=== PATIENT | female | born 1980 | race Caucasian/White ===

== ENCOUNTER 2019-04-16 07:15 | Inpatient (IN) | payer SELFPAY ==
[2019-04-16 07:49] VITALS: BMI 35.0
[2019-04-16] MEDS: Lactated Ringers 1,000 ML 200 ML IV ×2 (08:00→17:30)
[2019-04-16] MEDS: Oxytocin 30 units/NS 500 ml 30 UNITS/500 ML IV.SOLN IV (08:14)
[2019-04-16 08:17] LABS: Absolute Lymphocyte Count 1.87 X10^3/uL (0.83-4.51); Absolute Neutrophil Count 8.1 X10^3/uL (2.0-7.7); Basophil# 0.07 X10^3/uL; Basophil% 0.6 % (0-1); Eosinophil# 0.08 X10^3/uL; Eosinophils% 0.7 % (0-5); Hematocrit 33.6 % (37-47); Hemoglobin 11.3 g/dL (12.0-15.0); Lymphocyte # 1.87 X10^3/ul (4.0); Lymphocyte % 16.7 % (19-41); Mean Corp Hgb Conc 33.6 g/dL (32-36); Mean Corpuscular Hgb 31.7 pg (27.0-32.0); Mean Corpuscular Volume 94.1 fL (81-99); Mean Platelet Vol. 10.4 fl (6.2-12.0); Monocyte# 0.84 X10^3/uL; Monocyte% 7.5 % (0-10); NRBC Flagged by Analyzer 0 % (0-5); Neutrophil # 8.11 X10^3/uL (2.7-7.7); Neutrophil % 72.2 % (47-70); Platelet Count 224 K/mm3 (150-450); RBC Distribution Width CV 12.8 % (11.6-14.6); RBC Distribution Width SD 43.9 fl (35.1-43.9); Red Blood Count 3.57 M/mm3 (4.2-5.4); White Blood Count 11.2 K/mm3 (4.4-11.0)
--- NOTE | 2019-04-16 09:11 | PCM.HP.OB ---
- Problem List (1) Advanced maternal age (AMA) in Status: Acute (2) History of depression Status: Acute (3) PCOS (polycystic ovarian syndrome) Status: Acute (4) History of marijuana use Status: Acute History Date of Admission: 04/16/19 Final VICENTE: 04/19/19 Final VICENTE Source: US <20 weeks Gestational age: 39 Weeks and 4 Days History of this : This is a 39 year-old, G [2], P [1001], at 39 weeks 4 days gestational age. Allergies No Known Allergies Allergy (Verified 04/16/19 07:51) Home Medications: Home Medications Pnv No.95/Ferrous Fum/Folic AC [ Caplet] 1 ea PO 04/16/19 Smoking Status: Never smoker Alcohol: None Substance Use Type: Marijuana - History of marijuana use in early . No current use. Number of Fetus(es): 1 NST - FHR Rate Baby A Baseline: 135 Variability:: Moderate Accelerations:: 15 x 15 Decelerations:: None FHR Category:: Category I Uterine Activity:: Irregular History Past Pregnancies: Past Pregnancies Delivery Date Name GA/Weeks Outcome Route Weight Gender Labor Length Anesthesia Delivery Location Provider FOB Labs: Mom's Problem List Problem Status Onset Code Advanced maternal age (AMA) in Acute Mom's Labs & Results 04/16/19 04/16/19 04/16/19 08:00 08:00 11:45 WBC 11.2 H RBC 3.57 L Hgb 11.3 L Hct 33.6 L MCV 94.1 MCH 31.7 MCHC 33.6 RDW Std Deviation 43.9 RDW Coeff of Bev 12.8 Plt Count 224 MPV 10.4 Immature Gran % (Auto) 2.300 H Neut % (Auto) 72.2 H Lymph % (Auto) 16.7 L [place] % (Auto) 7.5 Eos % (Auto) 0.7 Baso % (Auto) 0.6 Absolute Neuts (auto) 8.1 H Absolute Lymphs (auto) 1.87 Nucleated RBC % 0 Urine Opiates Screen NEGATIVE Urine Methadone Screen NEGATIVE Ur Barbiturates Screen NEGATIVE Ur Phencyclidine Scrn NEGATIVE Ur Amphetamines Screen NEGATIVE U Methamphetamin-MDMA NEGATIVE U Benzodiazepines Scrn NEGATIVE Urine Cocaine Screen NEGATIVE U Cannabinoids Screen NEGATIVE Ur Drug Screen Comment Blood Type A POSITIVE Antibody Screen NEGATIVE Course Did the patient receive Yes care? Labs Blood Type: A RH: POSITIVE RPR/VDRL/Syphilis Nonreactive Rubella status Immune HbSAg Negative Date Done: 10/05/18 Chlamydia Negative Gonorrhea Negative HIV/AIDS Non-Reactive Group B Strep: Negative Current Obstetrical History Gestational Diabetes No Incompetent Cervix No Infertility Yes IUGR No Macrosomia No Hypertension/Pre-eclampsia No Placenta Previa/Abruption No PTL/PROM No Uterine anomaly No Oligohydramnios No Polyhydramnios No Multiple gestation No Past Medical History Asthma No Diabetes No Hypertension No Heart disease No Mitral valve prolapse No Neurologic/Seizure disorder/ No Migraines Kidney disease No Liver disease No Varicosities No Clotting disorders/Hx of DVT No Thyroid Dysfunction No Other medical diseases No Psychiatric disorders No Major trauma No Abnormal PAP smear No Sleep apnea No Mammogram in the last 2 years Yes Social History Marital Status: Alleged father Jorge Hx Smoking No Smoking Status Never smoker Substance Use Type Marijuana What date/time did you last last use was 09/13/18 pt tested positive for use any of the above? marijuana use. Have you had any previous Denies inpatient or outpatient treatment Expected Infant Delivery Method: Spontaneous Vaginal Review of Systems Constitutional: Denies: Chills, Fever, Weight Change HEENT: Denies: Head Aches, Sinus Congestion, Sinus Drainage Cardiovascular: Denies: Chest Pain, Palpitations Respiratory: Denies: Cough, Shortness of breath at rest, Sputum production Gastrointestinal: Denies: Abdominal Pain, Nausea, Vomiting Genitourinary: Denies: Dysuria Psychiatric: Denies: Anxiety, Depression, Homicidal Ideations, Suicidal Ideations Physical Exam General: Alert, Oriented x3, No apparent distress HEENT: Atraumatic, Normocephalic Cardiovascular: Regular rate, Regular Rhythm, No murmurs Lungs: Clear to auscultation, Normal air movement, No rhonchi, No wheeze Abdomen: Bowel Sounds Present, Soft, Non Tender, Gravid Extremities:: No edema Neurological: Deep Tendon Reflexes 2+/4 and Symmetrical. Negative for: Clonus BR[employer] AND [employer] AID LABOR: Normal external genitalia Estimated gestational size: Appropriate for gestational size Presentation: Cephalic Cervix Dilation (cm): 1.5 - Del Angel cath placed transcervically. Tolerated well. Station: -2 Effacement (%): 70 Assessment/Plan All Active Problems Advanced maternal age (AMA) in (Acute) History of depression (Acute) PCOS (polycystic ovarian syndrome) (Acute) History of marijuana use (Acute) This is a 39 year-old, G [], P [], at weeks gestational age. Induction of labor for AMA P: 1) Admit to L&D 2) IV and routine labs 3) Del Angel catheter and pitocin induction of labor 4) collaborative physician.
[2019-04-16 12:25] LABS: Amphetamine Urine VISTA NEGATIVE (<1000 ng/mL); Barbiturate Urine VISTA NEGATIVE (< 200 ng/mL); Benzodiazepine Urine VISTA NEGATIVE (< 200 ng/mL); Cocaine Urine VISTA NEGATIVE (< 300 ng/mL); Ecstacy Urine VISTA NEGATIVE (< 500 ng/mL); Methadone Urine VISTA NEGATIVE (< 300 ng/mL); PCP Urine VISTA NEGATIVE (< 25 ng/mL); THC Urine VISTA NEGATIVE (< 50 ng/mL); Vista UDS pH Range 6
[2019-04-16] MEDS: Lactated Ringers 500 ML 999 ML IV (17:00)
--- NOTE | 2019-04-16 17:50 | PCM.PN.OB ---
Patient Problems: Active and Suspected Problems Advanced maternal age (AMA) in (Acute) Subjective: Standing up and breathing through contractions. at bedside. Objective: 140, moderate variability, accels, no decels TOCO: every 2-3 minutes, strong. Pitocin at 12 mu's Cervix: 5cm/80%/-2 IBOW - Physical Exam Weight: 224 lb Body Mass Index (BMI) 35.0 Intake and Output for Last 24 Hours 04/14/19 04/15/19 04/16/19 23:59 23:59 23:59 Intake Total 1014.86 / 1014.86 Balance 1014.86 / 1014.86 Laboratory Tests Past 24 Hrs 04/16/19 04/16/19 04/16/19 08:00 08:00 11:45 WBC 11.2 H RBC 3.57 L Hgb 11.3 L Hct 33.6 L MCV 94.1 MCH 31.7 MCHC 33.6 RDW Std Deviation 43.9 RDW Coeff of Bev 12.8 Plt Count 224 MPV 10.4 Immature Gran % (Auto) 2.300 H Neut % (Auto) 72.2 H Lymph % (Auto) 16.7 L [place] % (Auto) 7.5 Eos % (Auto) 0.7 Baso % (Auto) 0.6 Absolute Neuts (auto) 8.1 H Absolute Lymphs (auto) 1.87 Nucleated RBC % 0 Urine Opiates Screen NEGATIVE Urine Methadone Screen NEGATIVE Ur Barbiturates Screen NEGATIVE Ur Phencyclidine Scrn NEGATIVE Ur Amphetamines Screen NEGATIVE U Methamphetamin-MDMA NEGATIVE U Benzodiazepines Scrn NEGATIVE Urine Cocaine Screen NEGATIVE U Cannabinoids Screen NEGATIVE Ur Drug Screen Comment Blood Type A POSITIVE Antibody Screen NEGATIVE Medical Necessity - Tobacco Use Smoking Status: Never smoker Assessment/Plan All Active Problems Advanced maternal age (AMA) in (Acute) A:Induction of Labor, progressing Category 1 FHT P: 1) Patient requesting epidural for pain management. Nitrous until epidural placement 2) Will AROM after epidural placement.
[2019-04-16] MEDS: fentaNYL-bupivacaine (epidural) 100 ML BAG EPIDURAL (17:58)
[2019-04-16] MEDS: Oxytocin 30 units/NS 500 ml 30 UNITS/500 ML IV.SOLN 334 UNITS IV (19:27)
--- NOTE | 2019-04-16 19:50 | PCM.OPRPT ---
Problem List (1) Advanced maternal age (AMA) in Status: Acute (2) History of depression Status: Acute (3) PCOS (polycystic ovarian syndrome) Status: Acute (4) History of marijuana use Status: Acute (5) Vaginal delivery Status: Acute (6) First degree perineal laceration Status: Acute Vaginal Delivery Method of Induction: Pitocin Amniotic Membrane Rupture Type: Artificial Amniotic Fluid Description: Clear Final VICENTE: 04/19/19 Gestational age: 39 Weeks and 4 Days Date of Procedure: 04/16/19 Pre-Operative Diagnosis: Induction of labor for AMA Post-Operative Diagnosis: Surgery/ Procedure Performed: Spontaneous Vaginal Delivery Type of Anesthesia: Epidural Description of Procedure: Progressed to complete with strong urge to Push. of viable female infant over 1st degree perineal laceration. APGARS 8, 9. Infant head delivered with body forthcoming. Placed on maternal abdomen. Mouth and nares suctioned for secretions, stimulated and strong cry. Pitocin started for active 3rd stage management. Placenta delivered with maternal effort via mojgan, intact, 3 vessel cord. Perineum inspected and revealed 1st degree perineal laceration, repaired with 3.0 vicryl with one figure eight suture. Fundus firm. Vaginal sweep completed. Sponge and instrument count done. . Mom and baby stable. Family bonding well. notified of delivery. Presentation: Vertex Placental Delivery Description: Spontaneous Placenta Disposition: [facility] Cord Vessel Description: 3 Vessels Cord Entanglement: None Estimated Blood Loss: 100 ml A gender: Female (1 minute): 8 (5 minute): 9 Episiotomy Description: None Laceration: Perineal Extension/lac, 1st degree Medications given after delivery: IV Pitocin
[2019-04-16] MEDS: 0.9% Saline Lock 10 ML Syringe IV (22:50)
[2019-04-17 00:40] VITALS: BP 89/47; PULSE 76; RESP 16; TEMP 36.8; O2SAT 94
[2019-04-17 04:19] VITALS: BP 106/65; PULSE 76; RESP 16; TEMP 37
[2019-04-17 04:31] LABS: Hematocrit 30.7 % (37-47); Hemoglobin 10.8 g/dL (12.0-15.0); Mean Corp Hgb Conc 35.2 g/dL (32-36); Mean Corpuscular Hgb 32.5 pg (27.0-32.0); Mean Corpuscular Volume 92.5 fL (81-99); Mean Platelet Vol. 10.5 fl (6.2-12.0); Platelet Count 215 K/mm3 (150-450); RBC Distribution Width CV 12.7 % (11.6-14.6); RBC Distribution Width SD 42.8 fl (35.1-43.9); Red Blood Count 3.32 M/mm3 (4.2-5.4); White Blood Count 20.7 K/mm3 (4.4-11.0)
--- NOTE | 2019-04-17 08:06 | PCM.PN.OB ---
Patient Problems: Active and Suspected Problems Advanced maternal age (AMA) in (Acute) History of depression (Acute) PCOS (polycystic ovarian syndrome) (Acute) History of marijuana use (Acute) Vaginal delivery (Acute) First degree perineal laceration (Acute) Subjective: pain well controlled, average lochia - Physical Exam General: Alert, Cooperative, No apparent distress Vital Signs Temp Pulse Resp BP Pulse Ox 98.6 F 76 16 106/65 94 04/17/19 04:04/17/19 04:04/17/19 04:04/17/19 04:04/17/19 00:40 Oxygen Delivery Method Room Air Weight: 101.605 kg Body Mass Index (BMI) 35.0 Intake and Output for Last 24 Hours 04/15/19 04/16/19 04/17/19 23:59 23:59 23:59 Intake Total 3199.26 / 3199.26 Output Total 1350 / 1350 600 / 600 Balance 1849.26 / 1849.26 -600 / -600 Laboratory Tests Past 24 Hrs 04/16/19 04/16/19 04/16/19 08:00 08:00 11:45 WBC 11.2 H RBC 3.57 L Hgb 11.3 L Hct 33.6 L MCV 94.1 MCH 31.7 MCHC 33.6 RDW Std Deviation 43.9 RDW Coeff of Bev 12.8 Plt Count 224 MPV 10.4 Immature Gran % (Auto) 2.300 H Neut % (Auto) 72.2 H Lymph % (Auto) 16.7 L [place] % (Auto) 7.5 Eos % (Auto) 0.7 Baso % (Auto) 0.6 Absolute Neuts (auto) 8.1 H Absolute Lymphs (auto) 1.87 Nucleated RBC % 0 Urine Opiates Screen NEGATIVE Urine Methadone Screen NEGATIVE Ur Barbiturates Screen NEGATIVE Ur Phencyclidine Scrn NEGATIVE Ur Amphetamines Screen NEGATIVE U Methamphetamin-MDMA NEGATIVE U Benzodiazepines Scrn NEGATIVE Urine Cocaine Screen NEGATIVE U Cannabinoids Screen NEGATIVE Ur Drug Screen Comment Blood Type A POSITIVE Antibody Screen NEGATIVE 04/17/19 04:25 WBC 20.7 H RBC 3.32 L Hgb 10.8 L Hct 30.7 L MCV 92.5 MCH 32.5 H MCHC 35.2 RDW Std Deviation 42.8 RDW Coeff of Bev 12.7 Plt Count 215 MPV 10.5 Immature Gran % (Auto) Neut % (Auto) Lymph % (Auto) [place] % (Auto) Eos % (Auto) Baso % (Auto) Absolute Neuts (auto) Absolute Lymphs (auto) Nucleated RBC % Urine Opiates Screen Urine Methadone Screen Ur Barbiturates Screen Ur Phencyclidine Scrn Ur Amphetamines Screen U Methamphetamin-MDMA U Benzodiazepines Scrn Urine Cocaine Screen U Cannabinoids Screen Ur Drug Screen Comment Blood Type Antibody Screen Medical Necessity - Tobacco Use Smoking Status: Never smoker Assessment/Plan All Active Problems Advanced maternal age (AMA) in (Acute) History of depression (Acute) PCOS (polycystic ovarian syndrome) (Acute) History of marijuana use (Acute) Vaginal delivery (Acute) First degree perineal laceration (Acute) PPD#1 routine care doing well likely home tomorrow
[2019-04-17 09:00] VITALS: BP 112/64; PULSE 72; RESP 16; TEMP 36.6
[2019-04-17 12:00] VITALS: BP 102/52; PULSE 78; RESP 16; TEMP 36.7
[2019-04-17 16:00] VITALS: BP 124/61; PULSE 80; RESP 16; TEMP 36.6
[2019-04-17 19:45] VITALS: PULSE 78; RESP 16; TEMP 36.7; O2SAT 97
[2019-04-18 03:15] VITALS: BP 92/53; PULSE 61; RESP 15; TEMP 36.4; O2SAT 97
[2019-04-18 08:15] VITALS: BP 100/56; PULSE 65; RESP 20; TEMP 36.5; O2SAT 97
--- NOTE | 2019-04-18 08:21 | PCM.PN.OB ---
Patient Problems: Active and Suspected Problems Advanced maternal age (AMA) in (Acute) History of depression (Acute) PCOS (polycystic ovarian syndrome) (Acute) History of marijuana use (Acute) Vaginal delivery (Acute) First degree perineal laceration (Acute) Subjective: Seen at bedside, doing well. Patient reports good pain control, mild lochia, voiding without difficulty. Patient reports breast-feeding without difficulty. - Physical Exam General: Alert, Oriented x3 Abdomen: Soft, Non Tender, - - Fundus firm Extremities: No Calf Tenderness Vital Signs Temp Pulse Resp BP Pulse Ox 97.5 F L 61 15 92/53 L 97 04/18/19 03:15 04/18/19 03:15 04/18/19 03:15 04/18/19 03:15 04/18/19 03:15 Oxygen Delivery Method Room Air Weight: 101.605 kg Body Mass Index (BMI) 35.0 Intake and Output for Last 24 Hours 04/16/19 04/17/19 04/18/19 23:59 23:59 23:59 Intake Total 3199.26 / 3199.26 Output Total 1350 / 1350 600 / 600 Balance 1849.26 / 1849.26 -600 / -600 Medical Necessity - Tobacco Use Smoking Status: Never smoker Assessment/Plan All Active Problems Advanced maternal age (AMA) in (Acute) History of depression (Acute) PCOS (polycystic ovarian syndrome) (Acute) History of marijuana use (Acute) Vaginal delivery (Acute) First degree perineal laceration (Acute) day #2, doing well Routine care DC home
--- NOTE | 2019-04-18 08:23 | DCINST_ITS ---
Discharge Diet: No Restrictions Discharge Activity: Return to Normal Activity, May not drive while taking narcotic pain medications., May Shower May resume sexual activity in: 4-6 weeks Additional Activity Instructions:: Nothing in the vagina for 4-6 weeks. You may return to work/school in 6 weeks. Call your doctor if your incision/area has: Continuous Slow Oozing, Sudden Increased Bleeding, Increased Pain/ Swelling, Increased Redness, Foul Smelling Discharge Additional Instructions: If you experience any of the following, contact your healthcare provider. * Bleeding that soaks a pad every hour for 2 hours * Fever 100.4 or higher * Unrelieved incision or abdominal pain * Swelling, redness, discharge or bleeding from your incision or episiotomy site * Your incision begins to separate * Problems urinating (including inability to urinate or burning while urinating). * Visual changes * Severe headache * Flu-like symptoms * Pain or redness in one of both of your breasts * Pain, warmth, tenderness or swelling in your legs, especially the calf area * Frequent nausea and vomiting * Symptoms of depression or anxiety If you experience any of the following, call 911 or go to the nearest Emergency Room. * Chest pain * Problems breathing * Seizure activity * Partial or complete paralysis of a body part, slurred speech, weakness or drooping of the face, or a sudden inability to walk or hold your balance Allergies/Adverse Reactions: Allergies No Known Allergies Allergy (Verified 04/16/19 07:51) Medications to take at Discharge Pnv No.95/Ferrous Fum/Folic AC [ Caplet] 1 ea PO 04/16/19 Ibuprofen [Motrin] 600 mg PO Q6H PRN PRN #30 tab 04/18/19 The following prescriptions were given: Ibuprofen [Motrin] 600 mg PO Q6H PRN PRN #30 tab PRN Reason: Mild Pain (-10/08) Transmission Status: Pending to [facility] When: Call to make an appointment with your doctor in 6 weeks. If you had elevated Blood Pressure or 4th degree laceration you will need to be seen in 2 weeks. Please Follow Up With: Megan Merrill CNM When: 2 weeks Primary Care Physician: Murphy Trevino MD [Primary Care Provider] - Test Results: Test results from this visit will be discussed in further detail at your follow- up appointment, if applicable.
[2019-04-18 13:40] VITALS: BP 112/69; PULSE 68; RESP 18; TEMP 36.5; O2SAT 97
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
--- NOTE | 2019-04-18 13:56 | NURSING ---
This nursing clerk reviewed the documentation completed by Can Lynch, student nurse.
== END 2019-04-18 13:44 | disposition home or self-care (01) | DRG 807 ==
PROVIDERS: Advanced Practice Midwife; Pediatrics; Admitting Provider Obstetrics & Gynecology; Family Provider Family Medicine; PCP Family Medicine; Referring Provider Obstetrics & Gynecology; Visit Provider Obstetrics & Gynecology
DX: O99.284 Endocrine, nutritional and metabolic diseases complicating childbirth (principal); Z37.0 Single live birth; O70.0 First degree perineal laceration during delivery; Z3A.39 39 weeks gestation of pregnancy; E28.2 Polycystic ovarian syndrome; F12.90 Cannabis use, unspecified, uncomplicated; O99.324 Drug use complicating childbirth
CPT/HCPCS: 59025; 59050; 80307; 85025; 85027; 86850; 86900; 86901; 99218; J7120; A4216; G0378